=== PATIENT | male | born 1940 | race Caucasian/White ===

== ENCOUNTER 2016-08-02 11:50 | Day surgery (SDC) | payer MEDICARE ==
[~2016-08-02] VITALS: Ht 172.7 cm; Wt 104.3 kg
[~2016-08-02 11:50] MED LIST: AMLO2.5T PO; HYDR25TA4 PO; OMEP40CA36 PO; Sodium Chloride LOK Flush 10 mL Syringe IV PRN; TAMS0.4C98 PO; fentaNYL-PF 50 mCg/mL 2 mL Inj IVPUSH PRN
[2016-08-02] MEDS ORDERED: LOSA50TA37 PO (12:13)
[2016-08-02 12:18] VITALS: BP 124/76; PULSE 71; RESP 16; O2SAT 91
[2016-08-02] MEDS ORDERED: 0.9% Sodium Chloride 1,000 ML ONE (12:33)
[2016-08-02 13:35] VITALS: BP 111/67; PULSE 65; RESP 16; O2SAT 91
[2016-08-02 13:45] VITALS: BP 109/67; PULSE 78; RESP 16; O2SAT 94
[2016-08-02 14:05] VITALS: BP 117/76; PULSE 84; RESP 16; O2SAT 97
--- NOTE | 2016-08-02 14:25 | ENDO ---
[address] [address] ENDOSCOPY PROCEDURE PATIENT: TIMI STAPLES : 1940 MR#: [id number] ADMIT: 08/02/2016 JOB ID: [id number] DATE OF SERVICE: 08/02/2016 TYPE OF OPERATION: 1. Esophagogastroduodenoscopy with biopsy. 2. Colonoscopy. PREOPERATIVE DIAGNOSIS(ES): 1. History of Hoyos esophagus. 2. Family history of colon polyps. POSTOPERATIVE DIAGNOSIS(ES): 1. Small hiatal hernia. 2. Irregular Z-line. 3. Moderate sigmoid diverticulosis. ANESTHESIA: Fentanyl 100 mcg and Versed 4 mg IV administered. COMPLICATIONS: None. BLOOD LOSS: Minimal. DESCRIPTION OF PROCEDURE: After risks and benefits were explained to the patient, informed consent was obtained. After anesthesia administered, upper endoscope was then inserted in the mouth, intubated into the esophagus, stomach, second portion of duodenum. Mucosa carefully examined. After procedure was done, the scope withdrawn and procedure terminated. Colonoscope was then inserted from rectum to cecum. Mucosa carefully examined. Prep of the patient was fair. After procedure was done, the scope withdrawn and procedure terminated. FINDINGS: Upon inspection of the esophagus, there was an irregular Z-line located at the distal esophagus. Z-line located at 35 cm from the incisors. Upon entering the stomach, there were no masses, ulcers, or lesions that were seen. Retroflexion showed small hiatal hernia. Duodenal bulb, first and second portions normal. Biopsies taken at the distal esophagus. Upon inspection of the anus, no masses, hemorrhoids, ulcers, or fissures that were seen. Throughout the entire examination, there was moderate sigmoid diverticulosis. No polyps or masses were seen. Retroflexion was normal. IMPRESSIONS: 1. Moderate sigmoid diverticulosis. 2. Small hiatal hernia. 3. Irregular Z-line. RECOMMENDATION: Await pathology results. High-fiber diet. Repeat colonoscopy in five years, given history of colon polyps.
--- NOTE | 2016-08-05 16:06 | PATH ---
SURGICAL PATHOLOGY Attending Physician:Jasiel Islas MD CASE STATUS: Signed Out PATIENT NAME: TIMI STAPLES PID: [id number] : 1940 DATE COLLECTED:08/02/2016 21:14 SPECIMEN: Esophagus, Biopsy CLINICAL HISTORY: 1). DISTAL ESOPHAGEAL FINAL DIAGNOSIS: Distal Esophagus, Biopsy: Specialized intestinal metaplasia consistent with Hoyos's esophagus. Squamous epithelium with increased intraepithelial eosinophils (up to 30 per high-power field), see comment. Negative for dysplasia or malignancy. ICD10: K22.70 NOTE: There is significant overlap between the morphologic appearances of eosinophilic esophagitis and gastroesophageal reflux, particularly at the gastroesophageal junction. However, the finding of greater than 15 eosinophils per high-power field generally indicates a diagnosis of eosinophilic esophagitis in the appropriate clinical and endoscopic setting. The differential diagnosis also includes drug reaction and food allergies. GROSS DESCRIPTION: The specimen is received in one formalin filled container labeled with the patient's name, sublabeled "distal esophagus" and consists of 3 portions of tissue which aggregate to 0.3 x 0.3 x 0.2 CM. The specimen is entirely submitted in one cassette. 08/02/2016 [facility] ICD-9 CODES: CPT CODES: 1: 69292 Electronically Signed Out Desiree Mancera MD [facility] Pathology [facility] [address], [place] [address] Technical component performed at [facility], [address], [place], [address]
== END 2016-08-02 23:59 | disposition home or self-care (01) ==
LOC: END 11:50
PROVIDERS: ATTEND Internal Medicine Gastroenterology
DX: Z12.11 Encounter for screening for malignant neoplasm of colon (principal); Z86.010 Personal history of colon polyps; Z83.71 Family history of colonic polyps; K57.30 Diverticulosis of large intestine without perforation or abscess without bleeding; K22.70 Barrett's esophagus without dysplasia; K44.9 Diaphragmatic hernia without obstruction or gangrene; I10 Essential (primary) hypertension; N40.0 Benign prostatic hyperplasia without lower urinary tract symptoms
CPT/HCPCS: 43239; 88305; G0105; G0500; J2250; J3010; J7030